=== PATIENT | female | born 1955 | race Caucasian/White ===

== ENCOUNTER 2017-12-10 11:52 | Day surgery (SDC) | payer MEDICAID ==
[2017-12-10] MEDS ORDERED: methylPREDNISolone ACETATE 80 MG/ML ONE (12:30)
[2017-12-10] MEDS ORDERED: DIPHENHYDRAMINE INJ 50 MG/ML VIAL ONE (12:30)
[2017-12-10] MEDS ORDERED: BUPIVACAINE /PF 0.25% 30 ML VIAL INJ ONE (12:30)
[2017-12-10] MEDS ORDERED: NS 50 ML BAG IV ONE (12:30)
[2017-12-10] MEDS ORDERED: MIDAZOLAM HCL 5 MG/5 ML VIAL ONE (12:30)
[2017-12-10] MEDS ORDERED: LIDOCAINE PF 2%, 200 MG/10 ML AMPUL.LUER (EPIDURAL) INJ ONE (12:30)
[2017-12-10] MEDS ORDERED: IOHEXOL 50 ML IV ONE (12:46)
[2017-12-10 17:15] VITALS: BP_SYST 138
[2017-12-10] MEDS ORDERED: LR 500 ML IV ONE (17:30)
[2017-12-10] MEDS ORDERED: MIDAZOLAM HCL 2 MG/2 ML VIAL (VERSED) IVP ONE (17:30)
[2017-12-10] MEDS ORDERED: DIPHENHYDRAMINE INJ 50 MG/ML VIAL IVP PRN (17:30)
== END 2017-12-10 16:00 | disposition home or self-care (01) ==
LOC: SDS 11:52 → SMU 12:13 → SDS 16:00
PROVIDERS: ATTEND Internal Medicine
DX: M51.16 Intervertebral disc disorders with radiculopathy, lumbar region (principal); Z85.3 Personal history of malignant neoplasm of breast; Z98.890 Other specified postprocedural states; Z88.2 Allergy status to sulfonamides; Z87.891 Personal history of nicotine dependence
CPT/HCPCS: 62323; J1040; J1200; J2001; J2250; J3490; J7120; Q9967; 77003